=== PATIENT | female | born 1945 | race Caucasian/White ===

== ENCOUNTER → 2017-10-09 09:55 | Outpatient (CLI) | payer MEDICARE, OTHER, SELFPAY ==
--- NOTE | 2017-10-09 | DI.NM.S_ITS ---
PROCEDURE: [facility] RADIOPHARMACEUTICAL: 25.2 mCi Tc-99m labeled autologous red cells IV. INDICATIONS: DIFFUSE LARGE B-CELL LYMPHOMA TECHNIQUE: After intravenous administration of autologous labeled WBC, YE views of the chest were obtained. A region of interest was drawn around the left ventricle to calculate left ventricle ejection fraction. COMPARISON: [place], [place], [place], 07/07/2017, 11:26. FINDINGS: The heart and great vessels are of normal size and configuration. The left ventricle contracts normally, with left ventricle ejection fraction of 69% compared to 70% previously. Normal ejection fractions for this study are above 55%. A drop from baseline ejection fraction of greater than 10 percentage points or to below 45% on follow-up studies may be considered significant. IMPRESSION: 1. Normal left ventricle ejection fraction of 69% stable from the prior study. Dictated by: Gera Mix M.D. on 10/09/2017 at 15:09 Approved by: Gera Mix M.D. on 10/09/2017 at 15:11
== END ==
PROVIDERS: Family Provider Family Medicine; PCP Family Medicine; Visit Provider Internal Medicine Hematology & Oncology
DX: C83.30 Diffuse large B-cell lymphoma, unspecified site (principal)
CPT/HCPCS: 78472; A9512; A9538

== ENCOUNTER → 2017-11-28 14:01 | Outpatient (REF) | payer MEDICARE, OTHER, SELFPAY | LOC: LAB 14:01 | PROVIDERS: Family Provider Family Medicine; PCP Family Medicine; Visit Provider Dermatology MOHS-Micrographic Surgery | DX: Z48.817 Encounter for surgical aftercare following surgery on the skin and subcutaneous tissue (principal) | CPT/HCPCS: 87070; 87077; 87186; 87205 ==

== ENCOUNTER → 2018-06-05 12:48 | Outpatient (CLI) | payer MEDICARE, OTHER, SELFPAY ==
[2018-06-05 13:36] LABS: Add Manual Diff / Slide Review NO; Basophils Absolute Auto 0 /uL (0-100); Basophils Percent Auto 0.9 % (0-2); Eosinophils Absolute Auto 100 /uL (0-450); Eosinophils Percent Auto 1.8 % (2-4); Hematocrit 38.7 % (36-46); Lymphocytes Absolute Auto 700 /uL (1100-4500); Lymphocytes Percent Auto 13.1 % (25-40); Mean Corpuscular HGB Conc 33.5 % (30-36); Mean Corpuscular Hemoglobin 28.4 PG (26-34); Monocytes Absolute Auto 600 /uL (0-900); Monocytes Percent Auto 12.8 % (3-14); Neutrophils Absolute Auto 3600 /uL (1500-7000); Neutrophils Percent Auto 71.4 % (50-75); Platelet Count 278 X10^3/uL (150-400); Red Blood Cell Count 4.56 X10^6/uL (4.0-5.2); Red Cell Distribution Width 14.5 % (11.6-14.8)
[2018-06-05 14:50] LABS: Alanine Aminotransferase 29 IU/L (9-52); Albumin 4.1 g/dL (3.5-5.0); Albumin Globulin Ratio 1.9 (1.0-2.8); Alkaline Phosphatase 94 U/L (38-126); Aspartate Aminotransferase 21 IU/L (14-36); BUN Creatinine Ratio 21.4 (6-22); Bilirubin Total 0.4 mg/dL (0.2-1.3); Blood Urea Nitrogen 15 mg/dL (7-17); Calcium 9.6 mg/dL (8.4-10.2); Carbon Dioxide 26 mmol/L (22-32); Chloride 104 mmol/L (98-107); Estimated Glomerular Filt Rate > 60.0 mL/min (>60); Globulin 2.2 g/dL (1.7-4.1); Glucose 84 mg/dL (80-110); HEMOLYSIS < 15 (0-50); Lactate Dehydrogenase 334 U/L (313-618); Potassium 4.2 mmol/L (3.4-5.1); Sodium 140 mmol/L (137-145); Total Protein 6.3 g/dL (6.3-8.2)
[2018-06-05 15:17] LABS: TSH w/ Reflex to FT4 1.96 uIU/mL (0.47-4.68)
[2018-06-05 15:38] LABS: Vitamin B12 818 pg/mL (239-931)
== END ==
PROVIDERS: Family Provider Family Medicine; PCP Family Medicine; Visit Provider Internal Medicine Hematology & Oncology
DX: C83.31 Diffuse large B-cell lymphoma, lymph nodes of head, face, and neck (principal); R53.0 Neoplastic (malignant) related fatigue; C83.30 Diffuse large B-cell lymphoma, unspecified site; E03.9 Hypothyroidism, unspecified; M35.9 Systemic involvement of connective tissue, unspecified
CPT/HCPCS: 36415; 80053; 82607; 83615; 84443; 85025

== ENCOUNTER → 2020-09-18 10:36 | Outpatient (CLI) | payer MEDICARE, OTHER, SELFPAY ==
--- NOTE | 2020-09-18 | DI.RAD.S_ITS ---
PROCEDURE: XR HAND LT MIN 3V INDICATIONS: LEFT THUMB PAIN TECHNIQUE: 3 views of the hand(s) acquired. COMPARISON: [facility], , HAND 3V RIGHT, 09/06/2006, 10:59. FINDINGS: Bones: No fractures or dislocations. Carpal bones are normally aligned. No suspicious bony lesions. Soft tissues: Small calcific deposits are seen in the soft tissues adjacent to the radial aspect of the distal aspect of the 2nd middle phalanx and also adjacent to the base of the 1st proximal phalanx, chronicity and etiology uncertain.. IMPRESSION: Soft tissue calcifications as discussed, mild degenerative interphalangeal osteoarthritic change, no erosive arthritis found. Dictated by: Alex Mckee M.D. on 09/18/2020 at 11:07 Approved by: Alex Mckee M.D. on 09/18/2020 at 11:08
== END ==
PROVIDERS: PCP Family Medicine; Referring Provider Family Medicine; Visit Provider Family Medicine
DX: M79.645 Pain in left finger(s) (principal)
CPT/HCPCS: 73130

== ENCOUNTER → 2021-09-02 10:55 | Outpatient (CLI) | payer MEDICARE, OTHER, SELFPAY ==
--- NOTE | 2021-09-02 10:59 | DI.RAD.S_ITS ---
PROCEDURE: XR LUMBAR SPINE 2-3V INDICATIONS: LUMBAR SPINE TECHNIQUE: 3 views of the lumbar spine were acquired. COMPARISON: None. FINDINGS: Bones: There are 5 [id number] lumbar vertebral bodies. There is 24? right convex scoliosis centered at L2. There is lateral listhesis of L3 on L4. Bones are osteopenic. Degenerative changes including intervertebral disc space narrowing, endplate sclerosis, osteophytosis, and facet sclerosis are present throughout the lumbar spine. There are likely mild superior endplate compression deformities at L1, L2, and L3. Soft tissues: Overlying bowel gas pattern is normal. Dense atheromatous calcifications are present throughout the abdominal aorta. IMPRESSION: 1. Right convex scoliosis. 2. Severe degenerative change of the lumbar spine. 3. Mild superior endplate compression deformities. These may be chronic; however no recent prior studies are available for comparison. If there is high clinical suspicion for acute fracture, noncontrast MRI of the lumbar spine could be used to evaluate for marrow edema in the acute or subacute setting. 4. Aortic atherosclerosis. Dictated by: Belkys Neely M.D. on 09/02/2021 at 13:44 Approved by: Belkys Neely M.D. on 09/02/2021 at 13:46
== END ==
PROVIDERS: PCP Family Medicine; Referring Provider Family Medicine; Visit Provider Family Medicine
DX: M47.816 Spondylosis without myelopathy or radiculopathy, lumbar region (principal); M41.86 Other forms of scoliosis, lumbar region; I70.0 Atherosclerosis of aorta; M54.50 Low back pain, unspecified
CPT/HCPCS: 72100

== ENCOUNTER → 2022-05-18 12:15 | Outpatient (CLI) | payer MEDICARE, OTHER, SELFPAY ==
--- NOTE | 2022-05-18 12:21 | DI.RAD.S_ITS ---
PROCEDURE: XR FOOT LT MIN 3V INDICATIONS: Foot pain after rolling ankle TECHNIQUE: 3 views of the foot were acquired. COMPARISON: [facility], [place], FOOT 3V LEFT, 08/15/2010, 8:05. FINDINGS: Bones: Moderate to severe hallux valgus is seen. Acute nondisplaced fracture through lateral portion of 5th metatarsal base is seen extending to 5th TMT joint space. No other fracture or dislocation. Osteoarthritic changes are noted throughout left foot most notably at 1st MTP joint. No suspicious bony lesions. Soft tissues: No tibiotalar joint effusion. Achilles tendon appears normal. IMPRESSION: Acute nondisplaced fracture involving 5th metatarsal base as above. No other fracture or dislocation. Left foot osteoarthritis. Moderate to severe hallux valgus. Dictated by: Emerson Cade M.D. on 05/18/2022 at 11:45 Approved by: Emerson Cade M.D. on 05/18/2022 at 11:47
== END ==
PROVIDERS: PCP Family Medicine; Referring Provider Nurse Practitioner Family; Visit Provider Nurse Practitioner Family
DX: S92.355A Nondisplaced fracture of fifth metatarsal bone, left foot, initial encounter for closed fracture (principal); M79.672 Pain in left foot; X50.0XXA Overexertion from strenuous movement or load, initial encounter
CPT/HCPCS: 73630

== ENCOUNTER → 2023-01-30 07:50 | Outpatient (CLI) | payer MEDICARE, OTHER, SELFPAY ==
--- NOTE | 2023-01-30 | DI.ECHO.S_ITS ---
[facility] +---------+ : : [address] : : : : [id number] : : : : Phone: [phone]+ Echocardiogram Report + + :Name: MARIELLE MORIN Study Date: 01/30/2023 Height: 63 in : :[facility] ReadingLocation: Weight: 135 lb : : Gender: Female BSA: 1.6 m2 : :: 1945 Age: 77 yrs BP: 160/80 mmHg: :Reason For Study: TRANSIENT ALTERATIONS OF AWEARENESS : :Ordering Physician: LOBO, : :GRAZYNA Snow Performed By: Debbie Mackey : :Referring: GRAZYNA DIAMOND : + + Interpretation Summary The ejection fraction is estimated to be 55-60%. Diastolic parameters suggest probable normal left ventricular diastolic function and normal filling pressures. The right ventricle is normal in size and function. No significant valvular abnormality. Procedure: A two-dimensional transthoracic echocardiogram with color flow and Doppler was performed. The study quality was technically adequate. Comparison is made with the echocardiogram of 11/12/2015. The patient was in sinus rhythm with heart rates between 69-87 bpm during the exam. Left Ventricle: The left ventricle is normal in size and wall thickness. The ejection fraction is estimated to be 55-60%. There are no obvious focal wall motion abnormalities noted but poor endocardial definition reduces the sensitivity for the detection of such. Diastolic parameters suggest probable normal left ventricular diastolic function and normal filling pressures. Right Ventricle: The right ventricle is normal in size and function. Atria: The left atrial size is normal. Right atrial size is normal. There is no Doppler evidence for an interatrial shunt. Mitral Valve: The mitral valve is normal in structure and function. There is mild mitral annular calcification. There is trace mitral regurgitation. Aortic Valve: The aortic valve is trileaflet. The aortic valve opens well. There is no aortic valve stenosis. There is trace aortic regurgitation. Tricuspid Valve: The tricuspid valve is normal in structure and function. There is trace tricuspid regurgitation. Pulmonic Valve: The pulmonic valve leaflets are thin and pliable; valve motion is normal. There is no pulmonic valvular regurgitation. Great Vessels: The aortic root is normal size. The dimensions of the ascending aorta are normal. The IVC is of normal diameter and collapses greater than 50% with a sniff. This suggests a low right atrial pressure of 3 mm Hg. Pericardium/ Pleura There is no pericardial effusion. There is no pleural effusion. MMode/2D Measurements & Calculations LVIDd: 4.1 cm LVOT diam: 1.7 cm LVIDs: 2.6 cm Ao root diam: 2.6 cm FS: 37.0 % asc Aorta Diam: 3.4 cm IVSd: 0.82 cm Ao Arch Diam (Prox Trans): 2.2 cm LVPWd: 0.94 cm LV garcia. diameter/BSA (cm/m^2): 2.5 LV sys. diameter/BSA (cm/m^2): 1.6 LA A2 area: 17.7 cm2 RA long axis: 4.6 cm LA A4 area: 19.0 cm2 RA area: 14.9 cm2 LA length (vol): 5.4 cm RA vol: 40.6 ml LA vol: 53.0 ml RA : 24.8 ml/m2 LA vol index: 32.4 ml/m2 IVC diam: 1.3 cm RVD1 (basal): 3.6 cm RVD2 (mid): 2.8 cm TAPSE: 1.8 cm Doppler Measurements & Calculations Ao V2 max: 119.5 cm/sec LVOT Max Roosevelt: 103.1 cm/sec Ao V2 mean: 89.4 cm/sec LV V1 max P.3 mmHg Ao max P.7 mmHg LV V1 VTI: 20.8 cm Ao mean P.4 mmHg BILL(I,D): 1.7 cm2 Ao V2 VTI: 28.9 cm BILL(V,D): 2.0 cm2 sev ratio: 0.72 BILL indexed to BSA (cm^2/m^2): 1.0 MV E max roosevelt: 94.2 cm/sec TR max roosevelt: 232.5 cm/sec MV A max roosevelt: 107.4 cm/sec TR max P.6 mmHg MV E/A: 0.88 PA V2 max: 101.7 cm/sec Med Peak E' Roosevelt: 7.3 cm/sec PA V2 mean: 69.6 cm/sec E/E' med: 13.0 PA mean P.2 mmHg Lat Peak E' Roosevelt: 6.6 cm/sec PA pr(Accel): 45.6 mmHg E/E' lat: 14.4 E/e' average: 13.7 MV dec time: 0.13 sec MVA(VTI): 1.5 cm2 MV V2 mean: 75.6 cm/sec SV(LVOT): 48.1 ml MV mean P.6 mmHg MV V2 VTI: 31.3 cm Reading Physician:KEVIN
== END ==
PROVIDERS: PCP Family Medicine; Referring Provider Family Medicine; Visit Provider Family Medicine
DX: R40.4 Transient alteration of awareness (principal); I34.81 Nonrheumatic mitral (valve) annulus calcification
CPT/HCPCS: 93306

== ENCOUNTER 2023-04-11 06:34 | Day surgery (SDC) | payer MEDICARE, OTHER, SELFPAY ==
--- NOTE | 2023-04-11 | PATH_ITS ---
[facility] Accession Number: [id number] No. of containers..01 Tissue . 01 Material submitted: . esophagus - ESOPHAGUS BIOPSY . 01 Diagnosis: ESOPHAGUS, BIOPSY: Squamous mucosa with no diagnostic abnormality. A PAS stain is negative for invasive fungal organisms. Intraepithelial eosinophils are not increased. Negative for dysplasia and malignancy. MRV 04/19/2023 1005 Local . 01 Electronically signed: . Lesli Avalos MD, Pathologist NPI- [id number] . 01 Gross description: . ESOPHAGUS BIOPSY: Received in formalin is multiple fragment(s) of castaneda, soft tissue measuring 0.5 x 0.5 x 0.1 cm in aggregate submitted entirely in 1 cassette(s) /AAY 04/13/2023 0523 Local . 01 Microscopic: . An AB/PAS stain is performed to evaluate for fungal organisms, and highlights scattered free floating fungal organisms. However, no invasive pseudohyphae are identified. The control stain showed appropriate reactivity. . 01 Pathologist provided ICD-10: R13.19 . 01 CPT . 171309, 104718 Specimen Comment: A courtesy copy of this report has been sent to [phone] Performed at: 01 [facility] [address] [place] [address] [address], [place], [place] [id number] MD Gera Lazar MD Phone: [phone]
[2023-04-11 07:08] VITALS: BP 150/70; PULSE 77; RESP 16; TEMP 36.2; O2SAT 98
[2023-04-11] MEDS: LACTATED RINGERS 1,000 ML 84 ML IV (07:29)
--- NOTE | 2023-04-11 07:55 | PM.HP.1 ---
History of Present Illness History of Present Illness Date Patient Seen: 04/11/23 Chief complaint: EGD/Colonoscopy Narrative: 77-year-old woman with difficulty swallowing here for diagnostic esophagoduodenoscopy and screening colonoscopy. No previous colonoscopy. No blood per rectum. No family history of intestinal malignancy. [facility] Medical History Back pain Acid reflux History of CREST syndrome Surgical History H/O oral surgery H/O foot surgery Family History Father Heart disease Son Gallstones Cancer Social History marital status: unknown household members: none lives independently: Yes occupational status: previously employed Smoking Status: Former smoker alcohol intake: current substance use type: does not use Meds Home Medications and Allergies Home Medications Medication Instructions Recorded Confirmed Type omeprazole 20 mg tablet,delayed 20 mg PO DAILY ##0 08/15/10 04/11/23 History release aspirin 81 mg tablet,delayed 81 mg PO DAILY 03/30/23 04/11/23 History release hydrocodone 5 mg-acetaminophen 325 1 tab PO DAILY PRN Pain, Moderate 03/30/23 04/11/23 History mg tablet sodium,potassium,mag sulfates 17.5 See Rx Instructions PO .COMPLEX 03/30/23 Rx gram-3.13 gram-1.6 gram oral soln #354 mL (Suprep Bowel Prep Kit) Allergies Allergy/AdvReac Type Severity Reaction Status Date / Time No Known Drug Allergies Allergy Verified 04/11/23 07:03 Exam Vital Signs (past 8 hours): - 04/11/23 07:08 Temperature 97.2 F L Pulse Rate 77 Respiratory Rate 16 Blood Pressure 150/70 H Pulse Oximetry 98 Oxygen Delivery Method Room Air Oxygen Delivery Method Room Air Narrative Exam Narrative: General adult woman alert oriented no acute distress Chest nonlabored respiration Extremities warm well perfused Assessment & Plan Assessment and plan (1) Esophageal dysphagia: Status: Acute Assessment & Plan narrative: 77-year-old woman with esophageal dysphagia here for diagnostic EGD and screening colonoscopy. Overview procedures discussed. Procedural risks including hemorrhage, intestinal injury missed diagnosis discussed questions answered she is in agreement with.
[2023-04-11 08:19] VITALS: BP 126/63; PULSE 79; RESP 22; TEMP 36.6; O2SAT 99
[2023-04-11 08:25] VITALS: BP 112/71; PULSE 80; RESP 24; O2SAT 95
--- NOTE | 2023-04-11 08:29 | PM.OP.EC ---
Operative Date/Time/Diagnoses Date of procedure: 04/11/23 Time of procedure: 08:29 Pre-op diagnosis: Esophageal dysphagia, colorectal screening Procedure & Clinicians Study performed: Esophagogastroduodenoscopy, aborted colonoscopy Same procedure as scheduled: Yes Indications: Esophageal dysphagia, colorectal screening Surgeon: Devan Berumen Procedure Notes Procedure in detail: The history and physical was performed/updated and the patient is ASA class is 2. The procedure was discussed in detail with the patient. Potential risks complications including infection, bleeding, missed diagnosis, perforation, need for surgery, and were explained. Their questions were answered and informed consent was obtained. Patient placed in left lateral decubitus position. Time out was performed. Procedural sedation was administered by Anesthesia. A bite block was placed. the scope was inserted into the mouth and advanced through the esophagus and into the stomach. the pylorus was intubated and the duodenum was examined to the 2nd portion.. The scope was retroflexed within the stomach. The stomach was then decompressed and scope pulled back to the GE junction. The scope was then removed Examination began with a thorough inspection of the perianal area there was no evidence of fissures, fistulae, external hemorrhoids or cutaneous malignancy. The colonoscopy scope was then placed into the anal canal and was advanced forward. The quality of the preparation was poor and inadequate for safe and accurate performance of the exam and was subsequently aborted. FINDINGS -moderate-sized hiatal hernia -no esophagitis. Biopsies of the esophagus performed with forceps -no esophageal stricture -colonoscopy preparation poor inadequate for safe and accurate performance of the exam. The patient tolerated the procedure well. They will be discharged once criteria are met. Specimen(s): other (Esophagus) Impression: Hiatal hernia Post-procedure Plan for aftercare: Follow-up pathology findings Disposition: same day surgery
[2023-04-11 08:30] VITALS: BP 160/70; PULSE 75; RESP 19; O2SAT 93
[2023-04-11 08:35] VITALS: BP 166/77; PULSE 77; RESP 18; O2SAT 99
== END 2023-04-11 09:03 | disposition home or self-care (01) ==
PROVIDERS: PCP Family Medicine; Referring Provider Surgery; Visit Provider Surgery
PROC: 0DJ08ZZ Inspection of Upper Intestinal Tract, Via Natural or Artificial Opening Endoscopic (ICD-10-PCS; CPT 43235; principal; 2023-04-11 07:45)
PROC: 0DJD8ZZ Inspection of Lower Intestinal Tract, Via Natural or Artificial Opening Endoscopic (ICD-10-PCS; CPT 45378; 2023-04-11 07:45)
DX: Z12.11 Encounter for screening for malignant neoplasm of colon (principal); R13.10 Dysphagia, unspecified; Z53.09 Procedure and treatment not carried out because of other contraindication; K44.9 Diaphragmatic hernia without obstruction or gangrene
CPT/HCPCS: 43239; G0121; J2704

== ENCOUNTER → 2023-06-13 12:41 | Outpatient (CLI) | payer MEDICARE, OTHER, SELFPAY ==
--- NOTE | 2023-06-13 | DI.MRI.S_ITS ---
PROCEDURE: MR SHOULDER RT W CON INDICATIONS: PAIN IN RT SHOULDER TECHNIQUE: After the administration of 12 mL of dilute intra-articular Gadolinium contrast, oblique coronal T1 and T2 spin echo with fat saturation, oblique sagittal T1 spin echo with and without fat saturation, oblique sagittal T2 fast spin echo with fat saturation, axial T1 spin echo with fat saturation through the shoulder. COMPARISON: None. FINDINGS: Image quality: Excellent. Rotator cuff: There is full-thickness rupture of distal supraspinatus and infraspinatus at their insertions on the humeral head with up to 4.4 cm medial retraction of torn tendon fibers to the level of glenoid. Distal subscapularis tendon is intact. Moderate to severe supraspinatus and infraspinatus muscle atrophy is seen on sagittal images. Bones and bursae: Superior migration of humeral head in relation to glenoid is seen with near complete loss of subacromial space. Gvqz-[id number]-hvhjpsaf acromioclavicular joint osteoarthritic changes are noted. No acute fracture or dislocation. Capsule and soft tissues: The labrum and glenohumeral ligaments appear intact. The long head of the biceps tendon appears thickened at the level of humeral head. The rotator interval appears normal, without fibrosis. The coracohumeral ligament is of normal thickness. No intra-articular bodies. IMPRESSION: 1. Full-thickness rupture of distal supraspinatus and infraspinatus at their insertions on humeral head with up to 4.4 cm medial retraction of torn tendon fibers to the level of glenoid. Moderate to severe supraspinatus and infraspinatus muscle atrophy. 2. Superior migration of humeral head in relation to glenoid. No acute fracture or dislocation. [id number] acromioclavicular joint osteoarthritis. No gross loose bodies. 3. No evidence of focal labral tear. 4. Proximal long head of biceps tendinosis. Dictated by: Emerson Cade M.D. on 06/13/2023 at 15:55 Approved by: Emerson Cade M.D. on 06/13/2023 at 15:58
--- NOTE | 2023-06-13 | DI.RAD.S_ITS ---
PROCEDURE: FL SHOULDER INJECTION MR/CT RT INDICATIONS: PAIN IN RT SHOULDER COMPARISON: [facility], MR, MR SHOULDER RT W CON, 06/13/2023, 13:16. TECHNIQUE: The indications, alternatives, benefits, risks, and complications of the procedure were explained to the patient. Written informed consent was obtained and placed in the chart. The shoulder was examined fluoroscopically and a site for needle placement chosen for entry into the glenohumeral joint from an anterior approach. The skin was prepped and draped in a sterile fashion, and 1% lidocaine infiltrated from skin down to joint capsule. A spinal needle was inserted into the glenohumeral joint, and a small amount of iodinated contrast media injected to confirm intra-articular placement of the needle tip. This was followed by approximately 12 mL dilute solution of a gadolinium containing MR contrast agent. The needle was removed and a dressing was applied. The patient was given postprocedural instructions and sent to the MR suite for MR imaging. FINDINGS: A single fluoroscopic spot image demonstrates intra-articular location of injected iodinated contrast. IMPRESSION: Successful fluoroscopically guided administration of dilute Gadolinium solution into the shoulder joint for MR arthrogram. Dictated by: Kaylene Agudelo M.D. on 06/16/2023 at 10:07 Approved by: Kaylene Agudelo M.D. on 06/16/2023 at 10:07
[2023-06-13] MEDS: LIDOCAINE 1% 20 ML INJ (14:32)
[2023-06-13] MEDS: SODIUM CHLORIDE 0.9 % 20 ML VIAL IV (14:33)
== END ==
LOC: RAD 12:42
PROVIDERS: Family Provider Family Medicine; PCP Family Medicine; Referring Provider Family Medicine; Visit Provider Family Medicine
DX: M75.121 Complete rotator cuff tear or rupture of right shoulder, not specified as traumatic (principal); M19.011 Primary osteoarthritis, right shoulder; M25.511 Pain in right shoulder
CPT/HCPCS: 23350; 73040; 73222; A9579; Q9967

== ENCOUNTER 2025-01-01 13:54 | Emergency (ER) | payer MEDICARE, OTHER, SELFPAY ==
[2025-01-01 14:23] VITALS: BP 128/68; PULSE 76; RESP 16; TEMP 36.9; O2SAT 98; BMI 22.8
--- NOTE | 2025-01-01 14:35 | EKG_ITS ---
[facility]
--- NOTE | 2025-01-01 14:35 | DI.RAD.S_ITS ---
PROCEDURE: XR CHEST 1V
--- NOTE | 2025-01-01 14:36 | ED_ITS ---
HPI - General Adult
--- NOTE | 2025-01-01 14:36 | ED.GENADULT ---
HPI - General Adult General Chief complaint: Weakness Stated complaint: Sent from pcp. Dehydrated Time Seen by Provider: 01/01/25 14:35 Source: patient, RN notes reviewed and old records reviewed Mode of arrival: Ambulatory Limitations: no limitations History of Present Illness HPI narrative: 79-year-old female no reported medical problems presents with feeling like her skin has been crawling since Monday. She states it feels creepy in uncomfortable. She states it is not itchy it is not warm she has not noted any rash or skin changes. She states initially it was everywhere now it is areas of has a little bit more fat associated. She notes no fevers or chills. No chest pain no shortness of breath. She had some nausea she did vomit once. She states she has not had any diarrhea or constipation she has had normal bowel movements. No dysuria urgency or frequency. She has not had similar symptoms in the past. She states she has not been using anything topical or on her skin that she thinks would have caused this. She does not normally take any daily medications. She took a hydrocodone at 12:30 p.m. today. Patient states no daily medication she denies any major surgeries no known drug allergies. Former smoker, vapes tobacco, no alcohol, no recreational drugs. Dr. Reed is her primary care physician. Related Data Home Medications ?Medication ?Instructions ?Recorded ?Confirmed omeprazole 20 mg tablet,delayed 20 mg PO DAILY ##0 08/15/10 04/11/23 release aspirin 81 mg tablet,delayed 81 mg PO DAILY 03/30/23 04/11/23 release hydrocodone 5 mg-acetaminophen 325 1 tab PO DAILY PRN Pain, Moderate 03/30/23 04/11/23 mg tablet Previous Rx's ?Medication ?Instructions ?Recorded sodium,potassium,mag sulfates 17.5 See Rx Instructions PO .COMPLEX 03/30/23 gram-3.13 gram-1.6 gram oral soln #354 mL (Suprep Bowel Prep Kit) Allergies Allergy/AdvReac Type Severity Reaction Status Date / Time No Known Drug Allergies Allergy Verified 04/11/23 07:03 Review of Systems Review of Systems ROS Unobtainable: All systems reviewed & are unremarkable except as noted in HPI and below Patient History Medical History Back pain Acid reflux History of CREST syndrome Surgical History H/O oral surgery H/O foot surgery Family History Father Heart disease Son Gallstones Cancer Social History marital status: unknown household members: none lives independently: Yes occupational status: previously employed alcohol intake: current substance use type: does not use tobacco type: vaping Exam Narrative Exam Narrative: GENERAL: Alert and oriented x three, thin elderly female in mild distress HEENT: Head normocephalic, atraumatic, EOMI, pupils reactive, face symmetric, moist mucous membranes NECK: Supple, full range of motion CARDIOVASCULAR: Regular rate and rhythm without murmurs, rubs or gallops. RESPIRATORY: Breath sounds equal bilaterally, no wheezes rales or rhonchi. ABDOMEN: Soft, nontender. Normoactive bowel sounds all 4 quadrants. No guarding or rebound, rigidity, no mass, nondistended. : No CVA tenderness EXTREMITIES: Normal range of motion, no clubbing or edema. Neurovascularly intact NEUROLOGICAL: Cranial nerves II through XII grossly intact. Moving all extremities SKIN: Warm, dry, no petechiae, no rashes or lesions. Initial Vital Signs Initial Vital Signs: Vital Signs Temperature 98.5 F 01/01/25 14:23 Pulse Rate 76 01/01/25 14:23 Respiratory Rate 16 01/01/25 14:23 Blood Pressure 128/68 01/01/25 14:23 Pulse Oximetry 98 01/01/25 14:23 Oxygen Delivery Method Room Air 01/01/25 14:23 Course Orders Ordered: ED Orders 01/01/25 14:35 XR chest 1V Stat Complete Blood Count AUTO DIFF Stat Comprehensive Metabolic Panel Stat Lipase Stat Magnesium Stat NT-proBNP (BNP-Adult 18+) Stat Troponin I Stat EKG-12 Lead Stat 01/01/25 15:05 Ictotest Urine Stat Urinalysis and Microscopic Stat 01/01/25 15:47 Creatinine Urine Random Stat Sodium Urine Random Stat Discontinued Medications Hydrocodone Bitart/Acetaminophen (Hydrocodone/Acet 5/325 Tablet) 1 tab PO NOW ONE Stop: 01/01/25 16:47 Last Admin: 01/01/25 16:56 Dose: 1 tab Sodium Chloride (Normal Saline 0.9%) 1,000 mls @ 1,000 mls/hr IV BOLUS ONE Stop: 01/01/25 15:34 Last Infusion: 01/01/25 17:29 Dose: Infused Magnesium Sulfate (Magnesium Sulfate) 2 gm in 50 mls @ 150 mls/hr IV NOW ONE Stop: 01/01/25 16:08 Last Infusion: 01/01/25 17:29 Dose: Infused Vital Signs Vital signs: Vital Signs - 8 hr 01/01/25 14:23 01/01/25 16:05 01/01/25 16:05 Temperature 98.5 F Pulse Rate 76 91 H Respiratory Rate 16 29 H Blood Pressure 128/68 174/71 H Pulse Oximetry 98 97 Oxygen Delivery Method Room Air 01/01/25 16:30 01/01/25 16:30 01/01/25 17:00 Temperature Pulse Rate 76 83 Respiratory Rate 19 33 H Blood Pressure 165/71 H Pulse Oximetry 94 90 L Oxygen Delivery Method 01/01/25 17:00 01/01/25 17:35 Temperature Pulse Rate Respiratory Rate Blood Pressure 160/114 H Pulse Oximetry Oxygen Delivery Method Room Air Medical Decision Making Lab Data 01/01/25 15:05 01/01/25 15:05 Labs: Lab Results 01/01/25 Range/Units 15:05 WBC 6.7 (4.5-11.0) X10^3/uL RBC 4.99 (4.0-5.2) X10^6/uL Hgb 13.6 (12.0-16.0) g/dL Hct 40.5 (36-46) % MCV 81.1 (80-100) fL MCH 27.3 (26-34) PG MCHC 33.7 (30-36) % RDW 14.0 (11.6-14.8) % Plt Count 276 (150-400) X10^3/uL Neut % (Auto) 89.7 H (50-75) % Lymph % (Auto) 5.0 L (25-40) % [place] % (Auto) 4.9 (3-14) % Eos % (Auto) 0.0 L (2-4) % Baso % (Auto) 0.4 (0-2) % Neut # (Auto) 6000 (0516-9318) /uL Lymph # (Auto) 300 L (3082-4115) /uL [place] # (Auto) 300 (0-900) /uL Eos # (Auto) 0 (0-450) /uL Baso # (Auto) 0 (0-100) /uL Sodium 126 L (137-145) mmol/L Potassium 4.1 (3.4-5.1) mmol/L Chloride 93 L (98-107) mmol/L Carbon Dioxide 17 L (22-32) mmol/L BUN 15 (7-17) mg/dL Creatinine 0.82 (0.52-1.04) mg/dL Estimated GFR > 60 (>60) mL/min BUN/Creatinine Ratio 18.3 (6-22) Glucose 80 (70-99) mg/dL Calcium 8.8 (8.4-10.2) mg/dL Magnesium 1.5 L (1.6-2.3) mg/dL Total Bilirubin 0.5 (0.2-1.3) mg/dL AST 35 (14-36) IU/L ALT 14 (<35) IU/L Alkaline Phosphatase 93 (38-126) U/L Troponin I 0.013 (0.01-0.034) ng/mL NT-Pro-B Natriuret Pep 5450 H (<450) pg/mL Total Protein 7.5 (6.3-8.2) g/dL Albumin 4.5 (3.5-5.0) g/dL Globulin 3.0 (1.7-4.1) g/dL Albumin/Globulin Ratio 1.5 (1.0-2.8) Lipase 64 (23-300) U/L Urine Color Yellow Urine Appearance Clear Urine pH 6.0 (4.5-8.0) Ur Specific [place] 1.025 (1.000-1.035) Urine Protein 1+ H (Negative) Urine Glucose (UA) Negative (Negative) g/dL Urine Ketones 2+ H (NEGATIVE) Urine Occult Blood Negative (Negative) Urine Nitrate Negative (Negative) Urine Bilirubin 1+ H (NEGATIVE) Ur Bilirubin Confirm Negative (Negative) Urine Urobilinogen 1.0 (0.2) E.U./dL Ur Leukocyte Esterase Negative (NEGATIVE) Urine RBC None seen (0-5/HPF) Urine WBC 1-5/hpf (0-5/HPF) Ur Squamous Epith Cells 1-5 /hpf (0-5/HPF) Ur Transition Epith Cell 0-1/hpf (0-5/HPF) Ur Renal Epithelial Cell 0-1/hpf (0-1/HPF) Urine Bacteria None seen (None) Hyaline Casts 5-10/lpf (None) Ur Culture Indicated? 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 QT corrected is 537 with a rate 88 IA 146 QRS of 118. No prior in the EMR for comparison. MDM Narrative Medical decision making narrative: EKG sinus rhythm, incomplete right bundle-branch, left posterior fascicular block premature atrial complexes QTC is 537 with a rate of 88. Labs show normal white count, hemoglobin and platelets, sodium is 126 last available was 140 in 2019 potassium is 4.1 chloride 93 CO2 17 with a BUN of 15 creatinine of 0.82 glucose 80 Mag is 1.5. LFTs are appropriate troponin 0.013 with a BNP of 5450. UA is 1+ protein 2+ ketones 1+ bili 1-5 white cells 1-5 squamous 1 transitional 1 renal, no bacteria 5-10 hyaline casts. Urine sodium, and creatinine ordered. Chest x-ray shows hyperexpanded lungs without acute cardiopulmonary process identified no focal infiltrates. Patient received 1 L fluids and 2 g Mag sulfate. Patient did have 1 dose of [place]. Patient notes only changes or relay that hurts skin feels weird in her bones kind of hurt. She would prefer to discharge home. I spoke with her primary care doctor Derek about observation versus discharge he states if patient prefers to discharge home they can have an appointment tomorrow at 11:15 a.m. it can repeat her labs and had [id number] evaluation. He notes she had labs in May when her sodium was in the 130 range. He asked that patient increase her salt intake overnight. Patient is agreeable to this plan. She has no other acute neurologic changes. She is ambulatory. Discharge Plan Departure Patient Disposition: Home Clinical Impression: Hyponatremia, Hypomagnesemia Instructions: DI for Hyponatremia Activity Restrictions/Additional Instructions: Follow up with your physician Dr. Reed tomorrow at 11:15 a.m.. He will see you tomorrow they will repeat your labs to make sure your sodium and magnesium are not dropping further. He does recommend that you have some increased salt intake overnight. Please return if you have any new or worsening symptoms, any changes to mentation, chest pain or shortness of breath, numbness tingling weakness difficulty with movement, any falls, any other new GI or urinary symptoms or other new or concerning changes. Prescriptions: No Action omeprazole 20 MG tablet,delayed release (DR/EC) 20 mg PO DAILY Qty: 0 sodium,potassium,mag sulfates [Suprep Bowel Prep Kit] 17.5-3.13-1.6 gram recon soln See Rx Instructions PO .COMPLEX Qty: 354 0RF Rx Instructions: TAKE DIRECTED BY PHYSICIAN. aspirin 81 mg tablet,delayed release (DR/EC) 81 mg PO DAILY hydrocodone-acetaminophen 5-325 mg tablet 1 tab PO DAILY PRN (Reason: Pain, Moderate) Referrals: Wade Reed MD [Primary Care Provider, Family Practice] Stand Alone Forms: Patient Portal/API
[2025-01-01 15:23] LABS: Add Manual Diff / Slide Review NO; Hematocrit 40.5 % (36-46); Hemoglobin 13.6 g/dL (12.0-16.0); Lymphocytes Absolute Auto 300 /uL (1100-4500); Mean Corpuscular HGB Conc 33.7 % (30-36); Mean Corpuscular Hemoglobin 27.3 PG (26-34); Mean Corpuscular Volume 81.1 fL (80-100); Platelet Count 276 X10^3/uL (150-400)
[2025-01-01 15:29] LABS: Alanine Aminotransferase 14 IU/L (<35); Albumin 4.5 g/dL (3.5-5.0); Albumin Globulin Ratio 1.5 (1.0-2.8); Alkaline Phosphatase 93 U/L (38-126); Blood Urea Nitrogen 15 mg/dL (7-17); Calcium 8.8 mg/dL (8.4-10.2); Carbon Dioxide 17 mmol/L (22-32); Chloride 93 mmol/L (98-107); Estimated Glomerular Filt Rate > 60 mL/min (>60); Globulin 3.0 g/dL (1.7-4.1); Glucose 80 mg/dL (70-99); HEMOLYSIS 29 (0-50); Lipase 64 U/L (23-300); Magnesium 1.5 mg/dL (1.6-2.3); Potassium 4.1 mmol/L (3.4-5.1); Sodium 126 mmol/L (137-145); Total Protein 7.5 g/dL (6.3-8.2)
[2025-01-01 15:37] LABS: Appearance Urine UA CLEAR; Bilirubin Urine UA 1+ (NEGATIVE); Color Urine UA YELLOW; Glucose Urine UA NEGATIVE (Negative); Ketones Urine UA 2+ (NEGATIVE); Leukocyte Esterase Urine UA NEGATIVE (NEGATIVE); Nitrite Urine UA NEGATIVE (Negative); Occult Blood Urine UA NEGATIVE (Negative); Protein Urine UA 1+ (Negative); Specific Gravity Urine UA 1.025 (1.000-1.035); Urobilinogen Urine UA 1.0 E.U./dL (0.2)
[2025-01-01 15:40] LABS: NT-proBNP (BNP-Adult 18+) 5450 pg/mL (<450); Troponin I 0.013 ng/mL (0.01-0.034)
[2025-01-01 15:44] LABS: pH Urine UA 6.0 (4.5-8.0)
[2025-01-01 15:53] LABS: Culture Indicated Urine Cult Not Indicated; Ictotest Urine Negative (Negative)
[2025-01-01 16:05] VITALS: BP 174/71; PULSE 91; RESP 29; O2SAT 97
[2025-01-01] MEDS: MAGNESIUM SULFATE 2 GM/50 ML PIGGYBACK IV (16:12)
[2025-01-01] MEDS: SODIUM CHLORIDE 0.9% 1,000 ML 1000 ML IV (16:12)
[2025-01-01 16:30] VITALS: BP 165/71; PULSE 76; RESP 19; O2SAT 94
[2025-01-01 17:00] VITALS: BP 160/114; PULSE 83; RESP 33; O2SAT 90
== END 2025-01-01 17:35 | disposition home or self-care (01) ==
PROVIDERS: Emergency Provider Emergency Medicine; Family Provider Family Medicine; PCP Family Medicine
DX: E87.1 Hypo-osmolality and hyponatremia (principal); E83.42 Hypomagnesemia; R11.2 Nausea with vomiting, unspecified; I45.10 Unspecified right bundle-branch block
CPT/HCPCS: 71045; 80053; 81001; 83690; 83735; 83880; 84484; 85025; 93005; 96365; 99284; J3475; J7030